=== PATIENT | female | born 1995 | race American Indian/Alaskan Native ===

== ENCOUNTER 2020-05-13 10:02 | Emergency (ER) | payer OTHER ==
[2020-05-13 11:29] LABS: Bacteria,Urine 2+ /HPF (Negative); Bilirubin,Urine NEG (Negative); Blood,Urine SM (Negative); Color,Urine Amber (Yellow); Mucus,Urine 3+ /HPF
[2020-05-13 11:30] LABS: WBC,Urine > 182.0 /HPF (0.0-6.0)
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
[2020-05-13] MEDS ORDERED: MORPHINE 2 MG/1 ML INJ ONE (12:51)
--- NOTE | 2020-05-13 13:55 | Emergency Department Report ---
ED Female HPI - General Chief complaint: Urogenital-Female Stated complaint: MCA Time Seen by Provider: 05/13/20 13:49 Source: patient Mode of arrival: Ambulatory Limitations: No Limitations - Related Data Previous Rx's Medication Instructions Recorded Last Taken Type Nitrofurantoin Emanuel/M-Cryst 100 mg PO Q12HR 10 Days #20 capsule 05/13/20 Unknown Rx [Macrobid CAP] Allergies Allergy/AdvReac Type Severity Reaction Status Date / Time amoxicillin Allergy Unknown Verified 05/13/20 10:16 ED Review of Systems ROS: Stated complaint: MCA Other details as noted in HPI ED Past Medical Hx - Past Medical History Previous Medical History?: No Hx Asthma: Yes - Surgical History Past Surgical History?: No - Social History Smoking Status: Current Every Day Smoker Substance Use Type: Alcohol, Marijuana - Medications Home Medications: Home Medications Medication Instructions Recorded Confirmed Last Taken Type Nitrofurantoin Emanuel/M-Cryst 100 mg PO Q12HR 10 Days #20 capsule 05/13/20 Unknown Rx [Macrobid CAP] ED Physical Exam - General Limitations: No Limitations General appearance: alert, in no apparent distress - Head Head exam: Present: atraumatic, normocephalic - Eye Eye exam: Present: normal appearance - ENT ENT exam: Present: mucous membranes moist ED Course Vital Signs 05/13/20 10:16 Temperature 98.6 F Pulse Rate 117 H Respiratory 18 Rate Blood Pressure 146/89 O2 Sat by Pulse 100 Oximetry Critical care attestation.: If time is entered above; I have spent that time in minutes in the direct care of this critically ill patient, excluding procedure time. ED Disposition Clinical Impression: UTI (urinary tract infection) Disposition: DC-01 TO HOME OR SELFCARE Is pt being admited?: No Does the pt Need Aspirin: No Condition: Stable Instructions: Urinary Tract Infection in Women (ED) Additional Instructions: Your urine shows that you have a urinary tract infection. I like you to complete your antibiotics as prescribed. Need you to increase your water intake. You can take Tylenol or ibuprofen as needed for pain management. I would like for you to follow-up in 5 to 7 days to have a repeat urine by your primary care provider or urgent care. Prescriptions: Nitrofurantoin Emanuel/M-Cryst [Macrobid CAP] 100 mg PO Q12HR 10 Days #20 capsule Referrals: PRIMARY CARE, [Primary Care Provider] - 3-5 Days
[2020-05-13 14:33] LABS: HCG Qualitative,Urine Negative (Negative)
[2020-05-13 16:09] VITALS: BP 131/81
== END 2020-05-13 14:50 | disposition home or self-care (01) ==
LOC: ED 10:02
DX: N39.0 Urinary tract infection, site not specified (principal); J45.909 Unspecified asthma, uncomplicated; F17.200 Nicotine dependence, unspecified, uncomplicated; F12.10 Cannabis abuse, uncomplicated; Z79.899 Other long term (current) drug therapy; Z88.1 Allergy status to other antibiotic agents
CPT/HCPCS: 81001; 81025; 99283; J2270